=== PATIENT | female | born 1930 | race Caucasian/White ===

== ENCOUNTER 2017-08-28 05:33 | Inpatient (IN) ==
[2017-08-28] MEDS ORDERED: ONDANSETRON 4 MG/2 ML VIAL IV STA (06:15)
[2017-08-28] MEDS ORDERED: SODIUM CHLORIDE 0.9% 500 ML IV STA (06:15)
[2017-08-28] MEDS ORDERED: HYDROmorphone 2 MG/1 ML VIAL IV STA ×2 (06:15→07:16)
[2017-08-28] MEDS ORDERED: ONDANSETRON 4 MG/2 ML VIAL ONE (06:19)
[2017-08-28] MEDS ORDERED: HYDROmorphone 2 MG/1 ML VIAL ONE ×2 (06:20→07:09)
[2017-08-28 06:38] LABS: Basophils % 0.5 % (0.0-0.8); Eosinophils # 0.3 10*3/uL (0.0-0.87); Eosinophils % 3.3 % (0.00-10.9); Hematocrit 36.9 VOL% (35.7-47.0); Hemoglobin 11.8 GM/DL (12.0-16.0); Immature Granulocytes % 0.3 %; Immature Granulocytes Absolute 0.03 #; Lymphocytes # 2.2 10*3/uL (1.4-4.0); Lymphocytes % 25.6 % (21.3-54.2); Mean Corpuscular Hemoglobin 30 PG (27-34); Mean Corpuscular Volume 94.9 FL (87-102); Mean Platelet Volume 9.8 FL (9.6-12.0); Monocytes # 0.6 10*3/uL (0.11-0.8); Monocytes % 7.3 % (1.7-12.7); Neutrophils # 5.5 10*3/uL (1.4-7.4); Platelet Count 237 T/CUMM (130-400); Red Blood Count 3.89 MC/CUMM (3.8-5.5); Red Cell Distribution Width 12.6 % (9.3-17.3); White Blood Count 8.7 T/CUMM (4-12)
[2017-08-28 06:44] LABS: PT Patient Result 10.9 SECS; Partial Thromboplastin Time 24.7 SECS (0-40)
[2017-08-28 06:50] LABS: Albumin 3.7 G/DL (3.4-5.0); Bilirubin,Total 0.5 MG/DL (0.2-1.0); Osmolality,Calculated 282.4 MOS/KG (273-304); Potassium 4.8 MMOL/L (3.5-5.1); Total Protein 6.5 G/DL (6.4-8.3)
[2017-08-28] MEDS ORDERED: FAMOTIDINE 20 MG/2 ML VIAL IV STA (06:59)
[2017-08-28] MEDS ORDERED: FAMOTIDINE 20 MG/2 ML VIAL IV ONE (07:02)
[2017-08-28] MEDS ORDERED: ACETAMINOPHEN 325 MG TABLET PO PRN (07:51)
[2017-08-28] MEDS ORDERED: ONDANSETRON 4 MG/2 ML VIAL IV PRN (07:51)
[2017-08-28] MEDS ORDERED: DOCUSATE SODIUM 100 MG CAPSULE PO PRN (07:51)
[2017-08-28] MEDS ORDERED: SODIUM CHLORIDE 0.9% 1,000 ML IV SCH (08:00)
[2017-08-28] MEDS ORDERED: ceFAZolin 2,000 MG in PREMIX 1 EACH IV ONE ×2 (08:28→10:30)
[2017-08-28] MEDS ORDERED: ALBUTEROL/IPRATROPIUM 3 ML NEB RESP TX ONE (10:30)
[2017-08-28] MEDS: LACTATED RINGERS 1,000 ML IV SCH ×3 (11:15→22:41)
[2017-08-28] MEDS ORDERED: ALBUTEROL 0.63 MG/3 ML NEB RESP TX PRN (11:49)
[2017-08-28] MEDS ORDERED: IPRATROPIUM 500 MCG/2.5 ML NEB RESP TX PRN (11:49)
[2017-08-28] MEDS ORDERED: MORPHINE 2 MG/1 ML SYRINGE IV PRN ×4 (11:51→18:04)
[2017-08-28] MEDS ORDERED: TRANEXAMIC ACID 1,000 MG/10 ML VIAL IV ONE (12:01)
[2017-08-28] MEDS ORDERED: PROPOFOL 200 MG/20 ML VIAL IV ONE (13:19)
[2017-08-28] MEDS ORDERED: MIDAZOLAM 2 MG/2 ML VIAL ONE (13:21)
[2017-08-28] MEDS ORDERED: KETAMINE 500 MG/10 ML VIAL ONE (13:21)
[2017-08-28] MEDS ORDERED: SODIUM CHLORIDE 0.9% 100 ML IV ONE (13:22)
[2017-08-28] MEDS ORDERED: LEVALBUTEROL 1.25 MG/3 ML NEB RESP TX ONE (13:43)
[2017-08-28] MEDS ORDERED: ALBUTEROL 2.5 MG/3 ML NEB RESP TX ONE (13:55)
[2017-08-28] MEDS: ALBUTEROL/IPRATROPIUM 3 ML NEB RESP TX SCH ×2 (14:36→19:34)
[2017-08-28] MEDS: KETOROLAC 15 MG/1 ML VIAL IV SCH ×2 (16:25→21:01)
[2017-08-28] MEDS: ceFAZolin 2,000 MG in PREMIX 1 EACH IV SCH ×2 (16:29→22:52)
[2017-08-28] MEDS: ZALEPLON 5 MG CAPSULE PO SCH (20:54)
[2017-08-28] MEDS: FLUTICASONE/SALMETEROL 100-50 DISKUS 14 DOSE INH SCH (20:54)
[2017-08-28] MEDS: MONTELUKAST 10 MG TABLET PO SCH (20:54)
[2017-08-29] MEDS: ALBUTEROL/IPRATROPIUM 3 ML NEB RESP TX SCH ×4 (00:09→19:30)
[2017-08-29] MEDS: KETOROLAC 15 MG/1 ML VIAL IV SCH ×2 (04:25→10:22)
[2017-08-29] MEDS: FONDAPARINUX 2.5 MG/0.5 ML SYRINGE SUBCUT SCH (05:28)
[2017-08-29] MEDS: LACTATED RINGERS 1,000 ML IV SCH ×2 (05:33→05:34)
[2017-08-29 06:32] LABS: Basophils % 0.3 % (0.0-0.8); Eosinophils # 0.1 10*3/uL (0.0-0.87); Eosinophils % 0.8 % (0.00-10.9); Hematocrit 25.3 VOL% (35.7-47.0); Immature Granulocytes % 0.2 %; Immature Granulocytes Absolute 0.01 #; Lymphocytes % 15.6 % (21.3-54.2); Mean Corpuscular HGB Conc 31.6 GM/DL (32-36); Mean Corpuscular Hemoglobin 30 PG (27-34); Mean Corpuscular Volume 95.1 FL (87-102); Mean Platelet Volume 9.3 FL (9.6-12.0); Monocytes # 0.7 10*3/uL (0.11-0.8); Monocytes % 10.2 % (1.7-12.7); Neutrophils # 4.7 10*3/uL (1.4-7.4); Neutrophils % 72.9 % (38.7-73.9); Platelet Count 153 T/CUMM (130-400); Red Blood Count 2.66 MC/CUMM (3.8-5.5); Red Cell Distribution Width 12.6 % (9.3-17.3); White Blood Count 6.4 T/CUMM (4-12)
[2017-08-29 06:58] LABS: Calcium 8.2 MG/DL (8.5-10.1)
[2017-08-29 06:59] LABS: Osmolality,Calculated 279.5 MOS/KG (273-304); Potassium 4.9 MMOL/L (3.5-5.1)
[2017-08-29] MEDS: FLUTICASONE/SALMETEROL 100-50 DISKUS 14 DOSE INH SCH ×2 (09:31→20:05)
[2017-08-29] MEDS: BENAZEPRIL 10 MG TABLET PO SCH (09:32)
[2017-08-29] MEDS: CETIRIZINE 10 MG TABLET PO SCH (09:34)
[2017-08-29] MEDS: PANTOPRAZOLE 40 MG TABLET PO SCH (09:34)
[2017-08-29] MEDS: POLYETHYLENE GLYCOL POWDER 17 GM PACK PO SCH (09:38)
[2017-08-29] MEDS ORDERED: KETOROLAC 15 MG/1 ML VIAL IV SCH (10:30)
[2017-08-29] MEDS: CELECOXIB 200 MG CAPSULE PO SCH (17:32)
[2017-08-29] MEDS: MONTELUKAST 10 MG TABLET PO SCH (20:05)
[2017-08-29] MEDS: ZALEPLON 5 MG CAPSULE PO SCH (20:05)
[2017-08-30] MEDS: ALBUTEROL/IPRATROPIUM 3 ML NEB RESP TX SCH ×4 (00:06→19:45)
[2017-08-30] MEDS: FONDAPARINUX 2.5 MG/0.5 ML SYRINGE SUBCUT SCH (04:56)
[2017-08-30 06:54] LABS: Basophils % 0.1 % (0.0-0.8); Eosinophils # 0.1 10*3/uL (0.0-0.87); Eosinophils % 1.5 % (0.00-10.9); Hematocrit 23.3 VOL% (35.7-47.0); Hemoglobin 7.4 GM/DL (12.0-16.0); Immature Granulocytes % 0.7 %; Immature Granulocytes Absolute 0.05 #; Lymphocytes # 1.1 10*3/uL (1.4-4.0); Lymphocytes % 15.6 % (21.3-54.2); Mean Corpuscular HGB Conc 31.8 GM/DL (32-36); Mean Corpuscular Hemoglobin 30 PG (27-34); Mean Corpuscular Volume 94.7 FL (87-102); Mean Platelet Volume 9.9 FL (9.6-12.0); Monocytes # 0.7 10*3/uL (0.11-0.8); Monocytes % 9.3 % (1.7-12.7); Neutrophils # 5.2 10*3/uL (1.4-7.4); Neutrophils % 72.8 % (38.7-73.9); Platelet Count 161 T/CUMM (130-400); Red Blood Count 2.46 MC/CUMM (3.8-5.5); Red Cell Distribution Width 12.6 % (9.3-17.3); White Blood Count 7.1 T/CUMM (4-12)
[2017-08-30] MEDS ORDERED: SODIUM CHLORIDE 0.9% 250 ML IV PRN (07:16)
[2017-08-30] MEDS ORDERED: FUROSEMIDE 20 MG/2 ML VIAL IV PRN (07:16)
[2017-08-30] MEDS: PANTOPRAZOLE 40 MG TABLET PO SCH (09:24)
[2017-08-30] MEDS: BENAZEPRIL 10 MG TABLET PO SCH (09:24)
[2017-08-30] MEDS: CELECOXIB 200 MG CAPSULE PO SCH (09:24)
[2017-08-30] MEDS: CETIRIZINE 10 MG TABLET PO SCH (09:26)
[2017-08-30] MEDS: POLYETHYLENE GLYCOL POWDER 17 GM PACK PO SCH (09:29)
[2017-08-30] MEDS: FLUTICASONE/SALMETEROL 100-50 DISKUS 14 DOSE INH SCH ×2 (09:47→21:02)
[2017-08-30] MEDS: ALBUTEROL/IPRATROPIUM 3 ML NEB RESP TX PRN ×2 (11:09→15:21)
[2017-08-30] MEDS: ZALEPLON 5 MG CAPSULE PO SCH (21:00)
[2017-08-30] MEDS: MONTELUKAST 10 MG TABLET PO SCH (21:01)
[2017-08-31] MEDS: ALBUTEROL/IPRATROPIUM 3 ML NEB RESP TX SCH ×3 (01:16→12:29)
[2017-08-31 05:09] LABS: Basophils % 0.4 % (0.0-0.8); Eosinophils # 0.3 10*3/uL (0.0-0.87); Eosinophils % 3.9 % (0.00-10.9); Hematocrit 31.3 VOL% (35.7-47.0); Hemoglobin 10.3 GM/DL (12.0-16.0); Immature Granulocytes % 0.9 %; Immature Granulocytes Absolute 0.06 #; Lymphocytes # 1.1 10*3/uL (1.4-4.0); Lymphocytes % 16.8 % (21.3-54.2); Mean Corpuscular HGB Conc 32.9 GM/DL (32-36); Mean Corpuscular Hemoglobin 30 PG (27-34); Mean Corpuscular Volume 89.7 FL (87-102); Mean Platelet Volume 9.6 FL (9.6-12.0); Monocytes # 0.6 10*3/uL (0.11-0.8); Monocytes % 8.9 % (1.7-12.7); Neutrophils # 4.6 10*3/uL (1.4-7.4); Neutrophils % 69.1 % (38.7-73.9); Platelet Count 145 T/CUMM (130-400); Red Blood Count 3.49 MC/CUMM (3.8-5.5); Red Cell Distribution Width 14.5 % (9.3-17.3); White Blood Count 6.7 T/CUMM (4-12)
[2017-08-31] MEDS: FONDAPARINUX 2.5 MG/0.5 ML SYRINGE SUBCUT SCH (05:56)
[2017-08-31] MEDS ORDERED: MORPHINE 10 MG/5 ML UDCUP PO SCH (09:00)
[2017-08-31] MEDS: FLUTICASONE/SALMETEROL 100-50 DISKUS 14 DOSE INH SCH (09:23)
[2017-08-31] MEDS: CETIRIZINE 10 MG TABLET PO SCH (09:23)
[2017-08-31] MEDS: BENAZEPRIL 10 MG TABLET PO SCH (09:24)
[2017-08-31] MEDS: PANTOPRAZOLE 40 MG TABLET PO SCH (09:24)
[2017-08-31] MEDS: CELECOXIB 200 MG CAPSULE PO SCH (09:25)
[2017-08-31] MEDS: POLYETHYLENE GLYCOL POWDER 17 GM PACK PO SCH (09:26)
[2017-08-31 11:36] VITALS: BP 153/72
== END 2017-08-31 14:10 | disposition swing bed (61) | DRG 481 ==
LOC: EDBD → EDUNIT# → N.ED 05:33 → N.EDINP 07:48 → N.3E 08:26
PROVIDERS: ADMIT Internal Medicine; ATTEND Internal Medicine